=== PATIENT | female | born 2000 | race Caucasian/White ===

== ENCOUNTER 2021-09-14 13:32 | Emergency (ER) | payer SELFPAY ==
[~2021-09-14] VITALS: Ht 154.9 cm; Wt 75.0 kg
[2021-09-14] MEDS ORDERED: insulin regular, human 10 units/0.1 ml syringe SQ ONE ×2 (14:10→15:10)
--- NOTE | 2021-09-14 15:10 | NUR ---
NOTIFIED DENNIS ARANGO PT BLD SUGAR IS 414 VERBAL ORDER FOR INSULIN HUMLIN 5 U SQ ONCE AND THEN CHECK B.S IN 15 MINS.
[2021-09-14 15:16] VITALS: BP 121/84
== END 2021-09-14 16:25 ==
LOC: ER 13:33
DX: E10.65 Type 1 diabetes mellitus with hyperglycemia (principal)
CPT/HCPCS: 82948; 96372; 99284; J1815